=== PATIENT | male | born 1970 | race African-American/Black ===

== ENCOUNTER 2020-06-10 15:56 | Emergency (ER) | payer MEDICAID, OTHER ==
[~2020-06-10] VITALS: Ht 175.3 cm; Wt 86.2 kg
[2020-06-10 15:58] VITALS: BP 135/91
[2020-06-10] MEDS ORDERED: LIDOCAINE 1% HCL (LOCAL ANESTH.) INJ 20ML MDV IJ ONE (17:45)
[2020-06-10] MEDS ORDERED: BACITRACIN TOP OINT 1 UD PKG TOP ONE (18:30)
== END 2020-06-10 18:55 | disposition home or self-care (01) ==
LOC: ER 15:56
DX: S61.412A Laceration without foreign body of left hand, initial encounter (principal); F17.210 Nicotine dependence, cigarettes, uncomplicated; V49.49XA Driver injured in collision with other motor vehicles in traffic accident, initial encounter; Y93.89 Activity, other specified; Y92.488 Other paved roadways as the place of occurrence of the external cause; Y99.8 Other external cause status
CPT/HCPCS: 12002; 73130; 99283; J2001

== ENCOUNTER 2020-06-25 13:39 | Emergency (ER) | payer MEDICAID, OTHER ==
[~2020-06-25] VITALS: Ht 175.3 cm; Wt 83.9 kg
[2020-06-25 15:16] VITALS: BP 139/86
== END 2020-06-25 15:20 | disposition home or self-care (01) ==
LOC: ER 13:39
DX: S61.412D Laceration without foreign body of left hand, subsequent encounter (principal); X58.XXXD Exposure to other specified factors, subsequent encounter